=== PATIENT | male | born 1960 | race Caucasian/White ===

== ENCOUNTER → 2025-04-28 | Day surgery (SDC) | payer OTHER ==
[~2025-04-28] VITALS: Ht 170.2 cm; Wt 61.2 kg
[~2025-04-28] MED LIST: AMIT50TA PO; CYCL5TAB4 PO; DULO1CAP6 PO; GABA-1172 PO; GLYCOPYRROLATE INJ 0.2 MG/ML 2 ML VIAL As Ordered ONE; LIDOCAINE 2% 100 MG/5 ML SDV (FOR ANES.) As Ordered ONE; LUBI24CA32 PO; SIMV20TA22 PO; TEST200I14 IM; VITA100093 PO
[2025-04-28 09:25] VITALS: BP 124/74; TEMP 97.7; O2SAT 97
== END | disposition home or self-care (01) ==
LOC: M OPP 06:58
PROVIDERS: ATTEND Internal Medicine Gastroenterology
DX: D12.2 Benign neoplasm of ascending colon (principal); K64.8 Other hemorrhoids; Q43.8 Other specified congenital malformations of intestine; K59.00 Constipation, unspecified; K31.7 Polyp of stomach and duodenum; R12 Heartburn; Z79.899 Other long term (current) drug therapy
CPT/HCPCS: 43251; 45385; 88305; J1596; J3010